=== PATIENT | female | born 1985 | race Two or more races ===

== ENCOUNTER 2018-12-25 14:49 | Emergency (ER) | payer SELFPAY ==
[~2018-12-25] VITALS: Ht 154.9 cm; Wt 74.3 kg
[2018-12-25 18:16] VITALS: BP 112/79
== END 2018-12-25 20:04 | disposition home or self-care (01) ==
LOC: ED 19:58
DX: Z48.01 Encounter for change or removal of surgical wound dressing (principal); Z76.0 Encounter for issue of repeat prescription
CPT/HCPCS: 99283